=== PATIENT | female | born 1985 | race Caucasian/White ===

== ENCOUNTER 2020-02-11 14:20 | Outpatient (CLI) | payer BC, SELFPAY ==
--- NOTE | 2020-02-11 14:27 | USCV_ITS ---
Nimco Bolaños Age: 34 Gender: F : 1985 Exam Date: 02/11/2020 14:35 Ordering Phys: Misty Dorsey MD Technologist: Terrie Arce [place]am Location: [facility] [place]: [place] HISTORY: Lower extremity pain. PROCEDURES: Venous duplex imaging was performed in only the right lower extremity. The following venous structures were evaluated: common femoral vein, profunda vein, proximal portion of the greater saphenous vein, superficial femoral vein, and the popliteal vein. In addition, the posterior tibial and peroneal trunk were evaluated. Serial compression, augmentation maneuvers, and spectral Doppler flow evaluation were performed. FINDINGS: Normal 2-D Doppler and augmentation and compressibility throughout the lower extremity venous structures. Additional imaging through the proximal calf veins also reveals no thrombus. Limited evaluation of the greater saphenous vein is patent with no thrombus. CONCLUSIONS No DVT right lower extremity. Dr. Rachelle Barber DO (Electronically Signed) Final Date: 11 February 2020 15:11 S
== END 2020-02-11 14:21 | disposition home or self-care (01) ==
LOC: RAD 14:23
PROVIDERS: Visit Provider Family Medicine
DX: R60.0 Localized edema (principal); M79.604 Pain in right leg; M79.605 Pain in left leg
CPT/HCPCS: 93971